=== PATIENT | male | born 1980 | race Caucasian/White ===

== ENCOUNTER 2016-09-29 23:58 | Emergency (ER) | payer SELFPAY ==
[2016-09-30 00:39] LABS: Basophils % (Auto) 0.7 % (0.0-1.8); Eosinophils % (Auto) 2.4 % (0.0-4.3); Hematocrit 45.7 % (35.5-45.6); Hemoglobin 15.7 gm/dl (11.8-15.2); Mean Corpuscular HGB Conc 34 % (32-34); Mean Corpuscular Hemoglobin 30 pg (28-32); Mean Corpuscular Volume 86 fl (84-94); Platelet Count 180 K/mm3 (140-440); Red Blood Count 5.31 M/mm3 (3.65-5.03); Red Cell Distribution Width 12.5 % (13.2-15.2); White Blood Count 9.5 K/mm3 (4.5-11.0)
[2016-09-30 01:02] LABS: BUN/Creatinine Ratio 21.11; Blood Urea Nitrogen 19 mg/dL (9-20); Calcium 9.2 mg/dL (8.4-10.2); Carbon Dioxide 26 mmol/L (22-30); Glucose 99 mg/dL (75-100); Potassium 3.8 mmol/L (3.6-5.0); Sodium 138 mmol/L (137-145)
[2016-09-30 01:03] LABS: Anion Gap 18 mmol/L
[2016-09-30 06:09] VITALS: BP 125/84
--- NOTE | 2016-09-30 06:41 | Emergency Department Report ---
HPI - General Chief Complaint: Chest Pain Time Seen by Provider: 09/30/16 06:31 - HPI HPI: Chief complaint: Chest pain HPI: Patient complains of left pectoralis muscle pain and swelling. Patient describes it as sharp and increases with movement and palpation. Patient denies cough or cold. Patient denies fever, nausea, vomiting or diarrhea. Patient states the pain has been there since the middle of August and he has been to the emergency department 4 times for the same pain. Patient has had 2 chest x-rays, CTA, numerous negative cardiac enzymes and a CT of the abdomen. Patient does follow-up in the clinic and states he is scheduled for an ultrasound of his heart. Mode of arrival: private car Source: Patient old chart Began: 3 weeks ago Duration: Intermittent but never completely goes away Context: Patient works in construction Quality: Sharp Severity: 8 out of 10 Improved with: Nothing Worsened with: See above Associated signs and symptoms: See above ED Past Medical Hx - Past Medical History Previous Medical History?: Yes Hx Hypertension: Yes - Surgical History Past Surgical History?: No - Social History Smoking Status: Unknown if ever smoked Substance Use Type: Prescribed - Medications Home Medications: Home Medications Medication Instructions Recorded Confirmed Last Taken Type Metoprolol [Lopressor] 25 mg PO DAILY 09/30/16 09/30/16 09/29/16 History ED Review of Systems ROS: Stated complaint: ELEVATED BLOOD PRESSURE, CHEST PAIN Other details as noted in HPI ROS Constitutional: No fever ENT: No uri symptoms Cardiovascular: chest pain Respiratory: No sob or cough GI: No nausea vomiting or diarrhea : No dysuria frequency or urgency, Skin: No rash Neuro: No focal weakness or numbness Psych: No depression Castillo/lymph: No edema Physical Exam - Physical Exam Vital Signs: Vital Signs 09/30/16 09/30/16 09/30/16 00:04 04:32 04:33 Temperature 98.6 F Pulse Rate 72 83 Respiratory 20 Rate Blood Pressure 132/91 134/86 O2 Sat by Pulse 100 97 Oximetry 09/30/16 09/30/16 09/30/16 04:39 05:00 06:00 Temperature Pulse Rate 68 65 64 Respiratory 23 15 12 Rate Blood Pressure 134/86 126/79 125/84 O2 Sat by Pulse 97 98 98 Oximetry Physical Exam: GENERAL: The patient is well-developed well-nourished . HEENT: Normocephalic. Atraumatic. Extraocular motions are intact. Patient has moist mucous membranes. NECK: Supple. No meningitic signs are noted. There is no adenopathy noted. CHEST/LUNGS: Clear to auscultation. There is no respiratory distress noted. Tender left lateral pectoralis muscle without erythema or swelling noted. No crepitus or deformity. HEART/CARDIOVASCULAR: Regular. There is no tachycardia. There is no gallop rub or murmur. ABDOMEN: Abdomen is soft, nontender. Patient has normal bowel sounds. There is no abdominal distention. SKIN: There is no rash. There is no edema. There is no diaphoresis. NEURO: The patient is awake, alert, and oriented. The patient is cooperative. The patient has no focal neurologic deficits. The patient has normal speech. MUSCULOSKELETAL: There is no tenderness or deformity. There is no limitation range of motion. There is no evidence of acute injury. ED Course Vital Signs 09/30/16 09/30/16 09/30/16 00:04 04:32 04:33 Temperature 98.6 F Pulse Rate 72 83 Respiratory 20 Rate Blood Pressure 132/91 134/86 O2 Sat by Pulse 100 97 Oximetry 09/30/16 09/30/16 09/30/16 04:39 05:00 06:00 Temperature Pulse Rate 68 65 64 Respiratory 23 15 12 Rate Blood Pressure 134/86 126/79 125/84 O2 Sat by Pulse 97 98 98 Oximetry - Reevaluation(s) Reevaluation #1: 09/30/16 06:48 Reviewed with patient and he did not have a heart attack or a pulmonary embolus based on the studies arty done his previous visits. He was recommended that he follow-up with his doctor and have the workup that is scheduled. ED Medical Decision Making - Lab Data Result diagrams: 09/30/16 00:21 09/30/16 00:21 Laboratory Tests 09/30/16 09/30/16 00:21 03:26 Troponin T < 0.010 < 0.010 - EKG Data -: EKG Interpreted by Me EKG shows normal: sinus rhythm Rate: normal (68) - EKG Data When compared to previous EKG there are: no significant change Interpretation: normal EKG Critical care attestation.: If time is entered above; I have spent that time in minutes in the direct care of this critically ill patient, excluding procedure time. ED Disposition Clinical Impression: Musculoskeletal chest pain Disposition: DISCHARGED TO HOME OR SELFCARE Is pt being admited?: No Does the pt Need Aspirin: No Condition: Stable Instructions: Chest Pain (ED), Costochondritis (ED) Additional Instructions: Ibuprofen for pain Referrals: ELIEZER ZUÑIGA MD [Primary Care Provider] - 3-5 Days Time of Disposition: 06:41 Print Language: MACANESE
== END 2016-09-30 06:51 | disposition home or self-care (01) ==
LOC: ED 23:58
DX: R07.89 Other chest pain (principal); M79.1 Myalgia; I10 Essential (primary) hypertension
CPT/HCPCS: 36415; 80048; 84484; 85025; 93005; 93010; 99284

== ENCOUNTER 2019-12-13 19:08 | Emergency (ER) | payer SELFPAY | END 2019-12-13 19:10 | disposition left against medical advice (07) | LOC: ED 19:08 | DX: R07.0 Pain in throat (principal); Z53.21 Procedure and treatment not carried out due to patient leaving prior to being seen by health care provider ==